=== PATIENT | female | born 1945 | race Caucasian/White ===

== ENCOUNTER 2019-04-03 08:23 | Day surgery (SDC) | payer MEDICARE ==
[~2019-04-03] VITALS: Ht 160 cm; Wt 79.8 kg
[2019-04-03] MEDS ORDERED: normal saline 1000ml 1,000 ML IV PRN (08:45)
[2019-04-03 09:00] VITALS: BP 151/49
[2019-04-03] MEDS ORDERED: LOSA1TAB39 PO (09:06)
[2019-04-03] MEDS ORDERED: ALPR-624 PO (09:06)
[2019-04-03] MEDS ORDERED: PARO40TA4 PO (09:06)
[2019-04-03] MEDS ORDERED: CLOT15CR73 TP (09:06)
[2019-04-03] MEDS ORDERED: DOXY25TA PO (09:06)
[2019-04-03] MEDS ORDERED: POTA10TA19 PO (09:06)
[2019-04-03] MEDS ORDERED: AMLO5TAB4 PO (09:06)
[2019-04-03] MEDS ORDERED: ATOR40TA PO (09:06)
[2019-04-03 10:00] VITALS: BP 151/49
== END 2019-04-03 10:25 | disposition home or self-care (01) ==
LOC: SSTAY O 08:23
PROVIDERS: ATTEND Radiology Diagnostic Radiology
DX: M79.81 Nontraumatic hematoma of soft tissue (principal); M79.18 Myalgia, other site
CPT/HCPCS: 10160; 76942; J7030

== ENCOUNTER 2021-10-20 00:29 | Emergency (ER) | payer MEDICARE ==
[~2021-10-20] VITALS: Ht 160 cm; Wt 86.4 kg
[~2021-10-20 00:29] MED LIST: ALPR-624 PO; AMLO5TAB4 PO; ATOR40TA PO; CLOT15CR73 TP; DOXY25TA PO; LOSA1TAB39 PO; PARO40TA4 PO; POTA-192 PO
[2021-10-20 01:50] LABS: BASOPHILS % (AUTO) 0.6 % (0-1); EOSINOPHILS # (AUTO) 0.1 X10'3 (0-0.9); HEMOGLOBIN 11.2 g/dl (12.0-16.0); LYMPHOCYTES # (AUTO) 1.7 X10'3 (1.1-4.8); MEAN CORPUSCULAR HEMOGLOBIN 33.6 PG (27.0-31.0); MONOCYTES # (AUTO) 0.4 X10'3 (0-0.9); MONOCYTES % (AUTO) 4.9 % (2-12)
[2021-10-20 01:58] LABS: EOSINOPHILS % (AUTO) 1.4 % (0-6); HEMATOCRIT 32.2 % (35.0-45.0); LYMPHOCYTES % (AUTO) 22.3 % (21-51); MEAN CORPUSCULAR HGB CONC 34.7 g/dL (33.0-36.5); MEAN CORPUSCULAR VOLUME 96.8 FL (78-98); MEAN PLATELET VOLUME 6.7 FL (7.4-10.4); NEUTROPHILS # (AUTO) 5.4 X10'3 (1.8-7.7); NEUTROPHILS % (AUTO) 70.8 % (42-75); PLATELET COUNT 253 X10'3 (140-440); RED BLOOD COUNT 3.33 X10'6 (4.20-5.60); RED CELL DISTRIBUTION WIDTH 14.6 % (11.5-14.5); WHITE BLOOD COUNT 7.6 X10'3 (4.5-11.0)
[2021-10-20 02:07] LABS: ALANINE AMINOTRANSFERASE 21 U/L (12-78); ALBUMIN 3.2 G/DL (3.4-5.0); ALBUMIN/GLOBULIN RATIO 0.9 (1.1-1.5); ALKALINE PHOSPHATASE 81 IU/L (46-116); ANION GAP 11 (8-16); ASPARTATE AMINO TRANSFERASE 27 U/L (10-37); BILIRUBIN,TOTAL 0.6 MG/DL (0.1-1.0); BLOOD UREA NITROGEN 9 MG/DL (7-18); CALCIUM 8.8 MG/DL (8.5-10.1); CHLORIDE 94 MMOL/L (99-107); CREATININE 0.82 MG/DL (0.40-0.90); GLUCOSE 83 MG/DL (70-104); MAGNESIUM 1.2 MG/DL (1.5-2.4); SODIUM 128 MMOL/L (135-145); TOTAL CARBON DIOXIDE 22.8 MMOL/L (24-32); TOTAL PROTEIN 6.7 G/DL (6.4-8.2); eGFR 68 ML/MIN
[2021-10-20] MEDS ORDERED: potassium Cl 20 mEq SR tablet PO STA (02:37)
--- NOTE | 2021-10-20 02:39 | NUR ---
CALLED FOR CT DISK FOR PT, PER DR. IGLESIAS
[2021-10-20 04:35] VITALS: BP 113/49
== END 2021-10-20 04:52 | disposition home or self-care (01) ==
LOC: ER 00:29
DX: I48.0 Paroxysmal atrial fibrillation (principal); E87.6 Hypokalemia; R91.8 Other nonspecific abnormal finding of lung field; Z88.0 Allergy status to penicillin; Z88.2 Allergy status to sulfonamides; Z88.8 Allergy status to other drugs, medicaments and biological substances; Z79.899 Other long term (current) drug therapy
CPT/HCPCS: 36415; 71045; 71250; 80053; 83735; 83880; 84145; 84484; 85025; 93005; 99285; J7040